=== PATIENT | male | born 1985 | race Caucasian/White ===

== ENCOUNTER 2017-10-21 16:48 | Emergency (ER) | payer SELFPAY ==
[~2017-10-21] VITALS: Ht 182.9 cm; Wt 85.0 kg
[~2017-10-21 16:48] MED LIST: NO CURRENT MEDS; PERCOCET1 TA2 PO
[2017-10-21] MEDS ORDERED: CEPHALEXIN500 M1 PO (17:29)
[2017-10-21] MEDS ORDERED: BACTRIM DS1 TAB PO (17:29)
[2017-10-21 17:43] VITALS: BP 135/77
== END 2017-10-21 17:44 | disposition home or self-care (01) | DRG 125 ==
LOC: ED 16:48
DX: H00.024 Hordeolum internum left upper eyelid (principal); H02.844 Edema of left upper eyelid; H57.12 Ocular pain, left eye

== ENCOUNTER 2021-05-02 10:23 | Emergency (ER) | payer OTHER ==
[~2021-05-02] VITALS: Ht 182.9 cm; Wt 85.0 kg
[~2021-05-02 10:23] MED LIST changes: +BACTRIM DS1 TAB PO; +CEPHALEXIN500 M1 PO
[2021-05-02] MEDS ORDERED: PEPCID20 MG PO (11:01)
[2021-05-02] MEDS ORDERED: BENADRYL25 M1 PO (11:01)
[2021-05-02] MEDS ORDERED: PREDNISONE20 MG PO (11:01)
[2021-05-02 11:10] VITALS: BP 122/65
== END 2021-05-02 11:10 | disposition home or self-care (01) | DRG 918 ==
LOC: ED 10:23
DX: T63.481A Toxic effect of venom of other arthropod, accidental (unintentional), initial encounter (principal)